=== PATIENT | female | born 1950 | race Caucasian/White ===

== ENCOUNTER 2017-12-12 11:10 | Outpatient (CLI) | payer MEDICARE | END 2017-12-12 11:11 | disposition home or self-care (01) | LOC: BICRAD 11:10 | PROVIDERS: ATTEND Family Medicine | DX: M17.11 Unilateral primary osteoarthritis, right knee (principal) ==

== ENCOUNTER 2019-10-22 09:43 | Outpatient (CLI) | payer OTHER ==
--- NOTE | 2019-10-24 18:41 | CT ---
CT CORONARY CALCIUM SCORE: 10/22/19 HISTORY: 69-year-old hypertensive female smoker with hypercholesterolemia. TECHNIQUE: Noncontrast CT performed through the heart. Images displayed with limited field of view around the heart. Coronary calcium scoring performed on [employer] workstation. FINDINGS: The visualized central lung arenas are grossly clear. No cardiomegaly or pericardial effusion. Coronary calcium Agatston scores: Left main: 0 LAD: 173 LCX: 95 RCA: 76 Total: 344. IMPRESSION: 1. Total coronary calcium score of 344. 2. This places the patient at the 75th percentile for females of her age group. 3. Definite, at least moderate coronary atherosclerotic plaque. Mild coronary artery disease lik guerda. Significant coronary artery narrowing is possible. POS: [facility]
== END 2019-10-22 09:44 | disposition home or self-care (01) ==
LOC: BICCT 09:43
PROVIDERS: ATTEND Family Medicine
DX: Z01.818 Encounter for other preprocedural examination (principal); I10 Essential (primary) hypertension; E78.5 Hyperlipidemia, unspecified; R73.09 Other abnormal glucose
CPT/HCPCS: 75571

== ENCOUNTER 2024-11-01 00:19 | Inpatient (IN) | payer MEDICARE ==
[2024-11-02] MEDS ORDERED: Promethazine HCl 25 MG/ML VIAL IM PRN ×2 (00:28→10:27)
[2024-11-02] MEDS ORDERED: Morphine 2 MG/ML VIAL SLOW IVP PRN (00:28)
[2024-11-02] MEDS ORDERED: hydrALAZINE 20 MG/ML VIAL SLOW IVP PRN (00:28)
[2024-11-02] MEDS ORDERED: Ondansetron PF 4 MG/2 ML Vial IVP PRN (00:28)
[2024-11-02] MEDS: Sodium Chloride 0.9% 1,000 ML IV SCH (00:58)
[2024-11-02 05:17] VITALS: BMI 34.5
[2024-11-02 06:36] LABS: #Basophils 0.03 10x3/uL (0.0-0.2); %Basophils 0.4 % (0.0-1.0); %Eosinophils 0.9 % (0.0-10.0); %Lymphocytes 25.8 % (21.0-51.0); %Monocytes 12.6 % (0.0-10.0); Hematocrit 33.6 % (36.0-47.0); Mean Corpuscular HGB CONC 32.7 g/dL (32.0-36.0); Mean Corpuscular Hemoglobin 30.1 pg (27.0-31.0); Mean Corpuscular Volume 92.1 fL (78.0-98.0); Mean Platelet Volume 10.8 fL (7.4-10.4); Platelet Count 209 10x3/uL (130-400); RBC Distribution Width 12.6 % (11.5-14.5); Red Blood Cell (RBC) Count 3.65 mill/uL (4.20-5.40)
[2024-11-02 07:00] LABS: Anion Gap 13 mmol/L (10-20); BUN (Urea Nitrogen) 34 mg/dL (9.8-20.1); Calc. Creatinine Clearance 108 mL/min (70-130); Calcium 8.9 mg/dL (7.8-10.44); Carbon Dioxide 21 mmol/L (23-31); Chloride 112 mmol/L (98-107); Estimated GFR 92; Glucose 98 mg/dL (83-110); Potassium 3.4 mmol/L (3.5-5.1); Sodium 143 mmol/L (136-145)
[2024-11-02] MEDS: Metoprolol Tartrate 50 MG TAB PO SCH (08:42)
[2024-11-02] MEDS: Amlodipine 5 MG TAB PO SCH (08:46)
[2024-11-02] MEDS ORDERED: CEFAZOLIN 2 GM in Sodium Chloride 0.9% 100 ML IVPB SCH (09:30)
[2024-11-02] MEDS ORDERED: Ondansetron PF 4 MG/2 ML Vial ONE (09:47)
[2024-11-02] MEDS ORDERED: fentaNYL PF 100 MCG/2 ML SYRINGE ONE (09:47)
[2024-11-02] MEDS ORDERED: Rocuronium Bromide 10 MG/ML (10ML VIAL) ONE (09:47)
[2024-11-02] MEDS ORDERED: PROPOFOL 20 ML ONE (09:47)
[2024-11-02] MEDS ORDERED: SUGAMMADEX SODIUM 200 MG/2 ML VIAL ONE (09:47)
[2024-11-02] MEDS ORDERED: Ropivacaine 0.5% HCl/PF (150 MG/30 ML VIAL) ONE (09:50)
[2024-11-02] MEDS ORDERED: CEFAZOLIN 1 GM VIAL ONE (10:09)
[2024-11-02] MEDS ORDERED: PHENYLEPHRINE-NS 100 MCG/ML 10 ML SYRINGE ONE (10:22)
[2024-11-02] MEDS ORDERED: Ondansetron HCl/PF 4 MG/2 ML Vial IVP PRN (10:27)
[2024-11-02] MEDS ORDERED: fentaNYL 50 mcg/mL 1 mL Vial ONE ×2 (11:40→12:24)
[2024-11-02] MEDS: CEFAZOLIN 2 GM in Sodium Chloride 0.9% 100 ML IVPB SCH (18:30)
[2024-11-02] MEDS: Acetaminophen 325 MG TAB PO PRN (19:51)
[2024-11-03] MEDS: traMADol HCl 50 MG TAB PO PRN (02:20)
[2024-11-03 08:17] LABS: #Basophils 0.03 10x3/uL (0.0-0.2); %Basophils 0.4 % (0.0-1.0); %Eosinophils 1.3 % (0.0-10.0); %Lymphocytes 28.7 % (21.0-51.0); %Neutrophils 57.3 % (42.0-75.0); Hematocrit 32.7 % (36.0-47.0); Hemoglobin 10.6 g/dL (12.0-16.0); Mean Corpuscular HGB CONC 32.4 g/dL (32.0-36.0); Mean Corpuscular Hemoglobin 30.3 pg (27.0-31.0); Mean Corpuscular Volume 93.4 fL (78.0-98.0); Mean Platelet Volume 10.1 fL (7.4-10.4); Platelet Count 191 10x3/uL (130-400); RBC Distribution Width 12.9 % (11.5-14.5)
[2024-11-03] MEDS: Enoxaparin 40 MG (0.4 mL) SYRINGE SC SCH (09:18)
[2024-11-05 15:32] VITALS: BP 133/84; TEMP 98.1
== END 2024-11-05 18:29 | disposition home or self-care (01) | DRG 494 ==
LOC: SURG A 00:19
PROVIDERS: ADMIT Specialist; ATTEND Specialist
PROC: 0QSH04Z Reposition Left Tibia with Internal Fixation Device, Open Approach (ICD-10-PCS; principal; 2024-11-02)
PROC: 3E033XZ Introduction of Vasopressor into Peripheral Vein, Percutaneous Approach (ICD-10-PCS; 2024-11-02)
DX: S82.242A Displaced spiral fracture of shaft of left tibia, initial encounter for closed fracture (principal); I10 Essential (primary) hypertension; F32.A Depression, unspecified; E78.5 Hyperlipidemia, unspecified; F41.9 Anxiety disorder, unspecified; Z98.890 Other specified postprocedural states; W11.XXXA Fall on and from ladder, initial encounter
CPT/HCPCS: 29505; 36415; 80048; 85025; 96374; C1713; J0690; J1650; J1885; J2405; J2704; J2795; J3010; J7030